=== PATIENT | female | born 1970 | race Caucasian/White ===

== ENCOUNTER 2018-10-05 12:50 | Emergency (ER) | payer MEDICAID ==
[~2018-10-05] VITALS: Ht 167.6 cm; Wt 66.0 kg
[~2018-10-05 12:50] MED LIST: PANT40TA4 PO
[2018-10-05] MEDS ORDERED: SODIUM CHLORIDE 0.9% 1,000 ML IV ONE (16:00)
[2018-10-05 16:54] LABS: BASOPHILS % 0.1 % (0.0-2.0); HEMATOCRIT. 45.4 % (36.0-48.0); HEMOGLOBIN. 15.3 g/dL (12.0-16.0); LYMPHOCYTES % 10.1 % (20.0-50.0); MEAN CORPUSCULAR HEMOGLOBIN 29.9 pg (28.0-32.0); MEAN CORPUSCULAR VOLUME 88.7 fL (81.0-99.0); MEAN PLATELET VOLUME 10.7 fl (7.4-10.4); MONOCYTES % 5.6 % (2.0-8.0); NEUTROPHILS % 83.2 % (40.0-76.0); PLATELET 180 x1000/uL (130-400); RED BLOOD CELL COUNT 5.12 mill/uL (4.2-5.4); RED CELL DISTRIBUTION WIDTH 12.5 % (11.6-14.6)
[2018-10-05 16:59] LABS: CHLORIDE 107 mEq/L (98-107); INR 1.1; PROTHROMBIN TIME 10.7 sec (9.1-11.1)
[2018-10-05 17:01] LABS: HCG SCREEN NEGATIVE
[2018-10-05 17:04] LABS: CLARITY URINE CLEAR (CLEAR); COLOR URINE YELLOW (YELLOW); KETONES URINE NEGATIVE (NEGATIVE); LEUKOCYTE ESTERASE URINE NEGATIVE (NEGATIVE); NITRITE URINE NEGATIVE (NEGATIVE); OCCULT BLOOD URINE NEGATIVE (NEGATIVE); PH URINE 5.5 (4.5-8.0); PROTEIN URINE NEGATIVE (NEGATIVE); SPECIFIC GRAVITY URINE 1.021 (1.005-1.030); UROBILINOGEN URINE 0.2 E.U./dL (0.2-1.0)
[2018-10-05] MEDS ORDERED: MORPHINE SULFATE 4 MG/ML CPJ (NOT FOR IM USE) IV ONE (17:15)
[2018-10-05] MEDS ORDERED: ONDANSETRON HCL 4MG/2ML INJ IV ONE (17:15)
[2018-10-05 17:29] LABS: *AMPHETAMINES SCREEN URINE NEGATIVE (NEGATIVE); *BARBITURATES SCREEN URINE NEGATIVE (NEGATIVE); *BENZODIAZEPINES SCREEN URINE NEGATIVE (NEGATIVE); *COCAINE SCREEN URINE NEGATIVE (NEGATIVE); METHADONE URINE SCREEN NEGATIVE (NEGATIVE)
[2018-10-05 17:30] LABS: CANNABINOID URINE SCREEN NEGATIVE (NEGATIVE); OPIATES URINE SCREEN NEGATIVE (NEGATIVE); PHENCYCLIDINE URINE SCREEN NEGATIVE (NEGATIVE)
[2018-10-05] MEDS ORDERED: VISCOUS LIDOCAINE 2% 15 ML UDC PO ONE (19:00)
[2018-10-05] MEDS ORDERED: MAGNESIUM/ALUMINUM HYDROXIDE/SIMETHICONE 30ML UDC PO ONE (19:00)
[2018-10-05] MEDS ORDERED: DIATR MEGLU/DIATRIZOATE SOLN 30ML ONE (19:17)
[2018-10-05] MEDS ORDERED: KETOROLAC 30MG/ML VIAL IV ONE (19:45)
[2018-10-05 22:35] VITALS: BP 106/56
== END 2018-10-05 22:50 | disposition home or self-care (01) ==
LOC: ER 13:21
DX: R10.9 Unspecified abdominal pain (principal)
CPT/HCPCS: 36415; 74021; 74176; 80053; 80305; 81003; 81025; 83690; 84703; 85025; 85610; 96361; 96374; 96375; 99284; J2270; J2405; J7030; Z7610; Q9963

== ENCOUNTER 2018-11-27 00:53 | Emergency (ER) | payer MEDICAID ==
[~2018-11-27] VITALS: Ht 160 cm; Wt 64.9 kg
[2018-11-27 02:17] LABS: CLARITY URINE CLEAR (CLEAR); COLOR URINE YELLOW (YELLOW); KETONES URINE NEGATIVE (NEGATIVE); LEUKOCYTE ESTERASE URINE TRACE (NEGATIVE); NITRITE URINE NEGATIVE (NEGATIVE); OCCULT BLOOD URINE NEGATIVE (NEGATIVE); PH URINE 5.5 (4.5-8.0); PROTEIN URINE NEGATIVE (NEGATIVE); SPECIFIC GRAVITY URINE 1.007 (1.005-1.030); UROBILINOGEN URINE 0.2 E.U./dL (0.2-1.0)
[2018-11-27 05:00] VITALS: BP 113/68
== END 2018-11-27 05:02 | disposition home or self-care (01) ==
LOC: ER 00:53
DX: J06.9 Acute upper respiratory infection, unspecified (principal); H92.01 Otalgia, right ear
CPT/HCPCS: 71045; 81003; 81025; 87070; 87430; 99284; Z7610

== ENCOUNTER 2019-06-23 22:24 | Emergency (ER) | payer MEDICAID ==
[~2019-06-23] VITALS: Ht 160 cm; Wt 64.0 kg
[2019-06-24 01:58] VITALS: BP 115/80
== END 2019-06-24 02:00 | disposition home or self-care (01) ==
LOC: ER 22:24
DX: J06.9 Acute upper respiratory infection, unspecified (principal)
CPT/HCPCS: 99283

== ENCOUNTER 2020-10-19 13:05 | Emergency (ER) | payer MEDICAID ==
[~2020-10-19] VITALS: Ht 157.5 cm; Wt 63.0 kg
[~2020-10-19 13:05] MED LIST changes: -PANT40TA4 PO; +PANT40TA51 PO
[2020-10-19 14:13] VITALS: BP 119/51
== END 2020-10-19 14:14 | disposition home or self-care (01) ==
LOC: ER 13:09
DX: S00.83XA Contusion of other part of head, initial encounter (principal); M54.2 Cervicalgia; M54.9 Dorsalgia, unspecified; M25.562 Pain in left knee; M25.561 Pain in right knee; K74.60 Unspecified cirrhosis of liver; W01.0XXA Fall on same level from slipping, tripping and stumbling without subsequent striking against object, initial encounter; Y93.9 Activity, unspecified; Y92.9 Unspecified place or not applicable
CPT/HCPCS: 99282

== ENCOUNTER 2021-01-04 12:36 | Emergency (ER) | payer MEDICAID ==
[~2021-01-04] VITALS: Ht 160 cm; Wt 64.0 kg
[2021-01-04] MEDS ORDERED: TETRACAINE 0.5% OPHTH DROPS 4ML RIGHTEYE ONE (15:30)
[2021-01-04] MEDS ORDERED: FLUORESCEIN SODIUM 1MG/STRIP RIGHTEYE ONE (15:30)
[2021-01-04] MEDS ORDERED: POLY15DR31 RIGHTEYE (16:19)
[2021-01-04 16:42] VITALS: BP 104/61
== END 2021-01-04 16:44 | disposition home or self-care (01) ==
LOC: ER 12:56
DX: H11.001 Unspecified pterygium of right eye (principal); H57.11 Ocular pain, right eye; K74.60 Unspecified cirrhosis of liver; Z86.19 Personal history of other infectious and parasitic diseases
CPT/HCPCS: 99282

== ENCOUNTER 2021-12-16 13:40 | Emergency (ER) | payer MEDICAID ==
[~2021-12-16] VITALS: Ht 165.1 cm; Wt 61.0 kg
[~2021-12-16 13:40] MED LIST changes: +POLY15DR31 RIGHTEYE
[2021-12-16] MEDS ORDERED: KETOROLAC 30MG/ML VIAL IM ONE (15:45)
[2021-12-16 16:27] LABS: CLARITY URINE CLEAR (CLEAR); COLOR URINE YELLOW (YELLOW); KETONES URINE NEGATIVE (NEGATIVE); LEUKOCYTE ESTERASE URINE NEGATIVE (NEGATIVE); NITRITE URINE NEGATIVE (NEGATIVE); OCCULT BLOOD URINE NEGATIVE (NEGATIVE); PROTEIN URINE NEGATIVE (NEGATIVE); SPECIFIC GRAVITY URINE 1.012 (1.005-1.030); UROBILINOGEN URINE 0.2 E.U./dL (0.2-1.0)
[2021-12-16] MEDS ORDERED: NAPR-1176 MT (16:36)
[2021-12-16] MEDS ORDERED: LIDO700A15 TP (16:36)
[2021-12-16 17:26] VITALS: BP 143/72
== END 2021-12-16 17:28 | disposition home or self-care (01) ==
LOC: ER 13:40
DX: M54.50 Low back pain, unspecified (principal); Z98.890 Other specified postprocedural states
CPT/HCPCS: 72100; 81003; 96372; 99283; J1885

== ENCOUNTER 2022-12-28 15:15 | Emergency (ER) | payer MEDICAID ==
[~2022-12-28] VITALS: Ht 165.1 cm; Wt 63.0 kg
[~2022-12-28 15:15] MED LIST changes: +LIDO700A15 TP; +NAPR-1176 MT
[2022-12-28 15:50] VITALS: BP 100/63
== END 2022-12-28 17:04 | disposition home or self-care (01) ==
LOC: ER 15:15
DX: H57.10 Ocular pain, unspecified eye (principal); I10 Essential (primary) hypertension
CPT/HCPCS: 99281